=== PATIENT | male | born 1985 | race Caucasian/White ===

== ENCOUNTER 2025-03-25 20:21 | Emergency (ER) | payer OTHER ==
[2025-03-25] MEDS ORDERED: Bactrim Ds Tab1 EACH PO (23:15)
[2025-03-25] MEDS ORDERED: CEPH500 PO (23:15)
[2025-03-25] MEDS ORDERED: IBU600 MG PO (23:15)
== END 2025-03-25 21:19 | disposition home or self-care (01) ==
LOC: ER 20:21
DX: L98.9 Disorder of the skin and subcutaneous tissue, unspecified (principal); Z53.21 Procedure and treatment not carried out due to patient leaving prior to being seen by health care provider